=== PATIENT | female | born 1990 | race Caucasian/White ===

== ENCOUNTER 2020-04-14 22:49 | Emergency (ER) | payer OTHER ==
[~2020-04-14] VITALS: Ht 172.7 cm; Wt 74.8 kg
[2020-04-14 23:27] LABS: ABSOLUTE NEUTROPHILS 4.8 thou/uL (1.4-8.2); BASOPHILS 0.9 % (0.0-2.0); EOSINOPHILS 3.2 % (0.0-3.0); HEMATOCRIT 42.2 % (37.0-47.0); HEMOGLOBIN 14.3 gm/dL (12.0-15.0); LYMPHOCYTES 29.6 % (24.0-44.0); MCH 30.8 pg (26.0-34.0); MCHC 33.9 g/dL (28.0-37.0); MCV 90.8 fL (80.0-100.0); PLATELET COUNT 275 thou/uL (150-400); POLYS 57.3 % (36.0-66.0); RBC 4.64 mil/uL (4.20-5.00); RDW 11.9 % (10.5-14.5); WBC 8.4 thou/uL (4.0-11.0)
[2020-04-14 23:29] LABS: ANION GAP 9 mmol/L (7-16); BUN 11 mg/dL (7-18); CALCIUM 9.2 mg/dL (8.5-10.1); CHLORIDE 102 mmol/L (98-107); CO2 27 mmol/L (21-32); CREATININE 1.1 mg/dL (0.6-1.0); GLUCOSE 110 mg/dL (74-106); POTASSIUM 3.5 mmol/L (3.5-5.1); SODIUM 138 mmol/L (136-145)
[2020-04-14 23:38] LABS: TROPONIN-I <0.06 ng/mL (<0.06)
[2020-04-15 00:02] VITALS: BP 115/77
--- NOTE | 2020-04-15 10:44 | EKG ---
[facility] [place] [address] ELECTROCARDIOGRAM REPORT Name: BABS HERRMANN Room #: DEP [facility]#: [id number] Admission: 04/14/20 Attend Phys: Discharge: 04/15/20 Date of : 88 Report #: [id number] THIS REPORT FOR: cc: SILVIA - [facility] family physician/PCP SILVIA - [facility] family physician/PCP Jack Martin MD [facility] THIS REPORT FOR: //name// [facility] ED Test Date: 2020-04-14 Test Time: 23:02:08 Pat Name: BABS HERRMANN Department: Room: Gender: F Ui Architect: nico drew : 1990 Requested By: Gordon Parker Order Number: [id number] MD: Jack Martin Measurements Intervals [place] Rate: 80 P: 41 CA: 212 QRS: 62 QRSD: 82 T: 34 QT: 385 QTc: 445 Interpretive Statements Sinus rhythm Prolonged CA interval No previous ECG available for comparison Electronically Signed On 04-15-2020 10:44:33 [employer] by Jack Martin [email or web address] <ELECTRONICALLY SIGNED> By: Jack Martin MD, [facility] 04/15/20 1044 01 01 Jack Martin MD, [facility] /EPI
== END 2020-04-15 00:19 | disposition home or self-care (01) ==
LOC: ER 22:49
PROVIDERS: Emergency Medicine
DX: R07.89 Other chest pain (principal); R05 Cough; R11.0 Nausea; M54.6 Pain in thoracic spine; Z20.828 Contact with and (suspected) exposure to other viral communicable diseases; Z87.891 Personal history of nicotine dependence

== ENCOUNTER 2020-06-12 22:16 | Emergency (ER) | payer OTHER ==
[~2020-06-12] VITALS: Ht 172.7 cm; Wt 74.8 kg
[2020-06-12 22:39] LABS: URINE BILIRUBIN NEGATIVE (Negative); URINE BLOOD NEGATIVE (Negative); URINE CLARITY CLOUDY; URINE COLOR YELLOW; URINE GLUCOSE-RANDOM* NEGATIVE (Negative); URINE KETONES NEGATIVE (Negative); URINE LEUKOCYTES-REFLEX TRACE (Negative); URINE NITRITE-REFLEX NEGATIVE (Negative); URINE PROTEIN (DIPSTICK) NEGATIVE (Negative); URINE SPECIFIC GRAVITY >= 1.030 (1.005-1.035); URINE UROBILINOGEN 0.2 E.U./dl (0.2-1.0)
[2020-06-12] MEDS ORDERED: ONDANSETRON HCL4 M2 PO (22:41)
[2020-06-12 23:15] VITALS: BP 131/74
== END 2020-06-12 23:20 | disposition home or self-care (01) ==
LOC: ER 22:16
PROVIDERS: Nurse Practitioner
DX: R51.9 Headache, unspecified (principal); R11.0 Nausea; Z87.891 Personal history of nicotine dependence; Z98.890 Other specified postprocedural states